=== PATIENT | female | born 1960 | race Caucasian/White ===

== ENCOUNTER 2016-09-12 18:47 | Emergency (ER) | payer BC, OTHER ==
--- NOTE | 2016-09-12 22:15 | ED PDOC ---
Arrival/HPI - General Time Seen by Provider: 09/12/16 20:47 Historian: Patient - History of Present Illness Narrative History of Present Illness (Text): 09/12/16 22:12 Patient past medical history of only high cholesterol, complains of 4 day history of constipation with no and abdominal pain. Patient states that she suffers from chronic constipation, states that she took magnesium citrate earlier today and tried to have a bowel movement with no success, states that she feels that stool stuck. Otherwise: (-) urinary symptoms, (-) diarrhea, (-) fever, (-) melena, (+) hematochezia. Has no history of prior abdominal surgery. PMD [place] Past Medical History - Provider Review Nursing Documentation Reviewed: Yes - Infectious Disease Hx of Infectious Diseases: None - Tetanus Immunization Tetanus Immunization: Unknown - Past Medical History Past Medical History: No Previous - Cardiac Hx Cardiac Disorders: No Hx Angina: No Hx Cardiac Arrhythmia: No Hx Circulatory Problems: No Hx Congestive Heart Failure: No Hx Heart Murmur: No Hx Heart Transplant: No Hx Hypertension: No Hx Internal Defibrillator: No Hx Mitral Valve Prolapse: No Hx Pacemaker: No Hx Peripheral Edema: No Hx Peripheral Vascular Disease: No - Pulmonary Hx Respiratory Disorders: Yes Hx Asthma: Yes Hx Bronchitis: Yes Hx Chronic Obstructive Pulmonary Disease (COPD): No Hx Emphysema: No Hx Pneumonia: No Hx Respiratory Aspiration: No Hx Respiratory Tract Infection: No Hx Sleep Apnea: No Hx Tuberculosis: No - Neurological Hx Neurological Disorder: Yes (headaches) Hx Alzheimer's Disease: No HX Cerebrovascular Accident: No Hx Dementia: No Hx Dizziness: Yes Hx Meningitis: No Hx Migraine: No Hx Parkinson's Disease: No Hx Seizures: No Hx Transient Ischemic Attacks (TIA): No - HEENT Hx HEENT Disorder: Yes (reading glasses) Hx Blind: No Hx Cataracts: No Hx Deafness: No Hx Difficulty Chewing: No Hx Epistaxis: No Hx Glaucoma: No Hx Macular Degeneration: No - Renal Hx Renal Disorder: No Hx Dialysis: No Hx Kidney Stones: No Hx Neurogenic Bladder: No Hx Pyelonephritis: No Hx Renal Cancer: No Hx Renal Failure: No - Endocrine/Metabolic Hx Endocrine Disorders: No Hx Adrenal Cancer: No Hx Diabetes Insipidus: No Hx Diabetes Mellitus Type 1: No Hx Diabetes Mellitus Type 2: No Hx Hyperthyroidism: No Hx Hypothyroidism: No Hx Systemic Lupus Erythematosus: No - Hematological/Oncological Hx Blood Disorders: No Hx AIDS: No Hx Anemia: No Hx Cancer: No Hx Chemotherapy: No Hx Cirrhosis: No Hx Hemophilia: No Hx Hepatitis A: No Hx Hepatitis B: No Hx Hepatitis C: No Hx Metastasis: No Hx Shingles: No Hx Sickle Cell Disease: No Hx Unexplained Bleeding: No - Integumentary Hx Dermatological Disorder: No Hx Basal Cell Carcinoma: No Hx Eczema: No Hx Melanoma: No Hx Psoriasis: No Hx Squamous Cell Carcinoma: No - Musculoskeletal/Rheumatological Hx Musculoskeletal Disorders: Yes Hx Arthritis: No Hx Back Pain: Yes Hx Degenerative Joint Disease: No Hx Falls: Yes (fell off a chair) Hx Fractures: No Hx Gout: No Hx Herniated Disk: No Hx Myasthenia Gravis: No Hx Osteoarthritis: No Hx Osteomyelitis: No Hx Osteoporosis: No Hx Rhabdomyolysis: No Hx Spinal Stenosis: No Hx Unsteady Gait: No - Gastrointestinal Hx Gastrointestinal Disorders: No Hx Colostomy: No Hx Crohn's Disease: No Hx Diverticulitis: No Hx Gall Bladder Disease: No Hx Gastroesophageal Reflux: No Hx Gastrointestinal Ulcer: No Hx Ileostomy: No Hx Liver Failure: No Hx Pancreatitis: No HX Swallowing Problems: No - Genitourinary/Gynecological Hx Genitourinary Disorders: No Hx Hematuria: No Hx Incontinence: No Hx Prostate Problems: No Hx Sexually Transmitted Diseases: No Hx Urinary Tract Infection: No - Psychiatric Hx Psychophysiologic Disorder: No Hx Anxiety: No Hx Bipolar Disorder: No Hx Depression: No Hx Emotional Abuse: No Hx Hallucinations: No Hx Panic Disorder: No Hx Post Traumatic Stress Disorder: No Hx Psychosis: No Hx Physical Abuse: No Hx Schizophrenia: No Hx Sexual Abuse: No Hx Substance Use: No - Past Surgical History Past Surgical History: No Previous - Surgical History Hx Amputation: No Hx Appendectomy: No Hx Cardiac Catheterization: No Hx Cholecystectomy: No Hx Coronary Stent: No Hx Gastric Bypass Surgery: No Hx Hysterectomy: No Hx Joint Replacement: No Hx Kidney Transplant: No Hx Liver Transplant: No Hx Mastectomy: No Hx Musculoskeletal Surgery: No Hx Open Heart Surgery: No Hx Orthopedic Surgery: No Hx Splenectomy: No Hx Valve Replacement: No - Anesthesia Hx Anesthesia: No Family/Social History - Physician Review Nursing Documentation Reviewed: Yes Family/Social History: No Known Family HX Smoking Status: Never Smoked Hx Alcohol Use: No Hx Substance Use: No Allergies/Home Meds Allergies/Adverse Reactions: Allergies Penicillins Allergy (Mild, Verified 07/02/15 15:01) RASH Home Medications: Home Meds Medication Instructions Recorded Confirmed Albuterol HFA [Ventolin HFA 90 1 puff INH PRN PRN 08/16/15 08/16/15 mcg/actuation (8 g)] Atorvastatin [Lipitor] 20 mg PO DAILY 08/16/15 08/16/15 Review of Systems - Review of Systems Constitutional: Normal. absent: Fatigue, Weight Change, Fevers (chronic constipation) Respiratory: Normal. absent: SOB, Cough, Sputum Cardiovascular: Normal. absent: Chest Pain, Palpitations, Edema Gastrointestinal: Normal, Constipation. absent: Abdominal Pain, Vomiting, Appetite Changes Skin: Normal. absent: Rash, Pruritis, Skin Lesions Physical Exam - Physical Exam Narrative Physical Exam (Text): 09/12/16 22:14 GENERAL APPEARANCE: Patient is awake, alert, oriented x 3, in no acute distress. SKIN: Warm, dry; (-) cyanosis. EYES: (-) conjunctival pallor, (-) scleral icterus. ENMT: Pharynx: (-) exudate, (-) erythema. Airway patent. Mucous membranes moist. NECK: (-) tenderness, (-) stiffness, (-) lymphadenopathy. CHEST AND RESPIRATORY: (-) rales, (-) rhonchi, (-) wheezes; breath sounds equal bilaterally. HEART AND CARDIOVASCULAR: (-) irregularity; (-) murmur, (-) gallop. ABDOMEN AND GI: (-) distention. Bowel sounds active; (-) tenderness, (-) guarding, (-) rebound, (-) palpable masses, (-) CVA tenderness. RECTAL : (-) tenderness, (-) mass, (-) stool impaction. Stool brown in scant amount of bright red blood, guiac (+). Female EMT field checker, Kerry, was present during the entire exam. EXTREMITIES: (-) deformity, (-) edema, (+) distal pulses. NEURO AND PSYCH: Mental status as above; (-) focal findings. Medical Decision Making ED Course and Treatment: 09/12/16 22:15 55 yo F presents with constipation, noted to have (+) guaic on rectal exam with no stool impaction. Labs ordered. Otherwise, patient is hemodynamically stable. Labs reviewed and are within normal limits. Patient's hemoglobin is 12. On reevaluation, patient remains awake, alert, oriented 3 in no acute distress. On exam, patient is laying in bed comfortably, abdomen remains soft with no tenderness. Lab results discussed with the patient in great detail. Based on history, exam and diagnostic results plan will be for outpatient follow -up with PMD. Patient states she fully agrees with and understands discharge instructions. States that she agrees with the plan and disposition. Verbalized and repeated discharge instructions and plan. I have given the patient opportunity to ask any additional questions. Follow up with primary care physician in 1-2 days without fail. Advised to take medication as prescribed. Return to the emergency room at any time for any new or worsening symptoms. - Lab Interpretations Lab Results: 09/13/16 00:35 09/13/16 00:35 Lab Results 09/13/16 00:35: WBC 9.8 D, RBC 4.21, Hgb 12.9, Hct 38.6, MCV 91.7, MCH 30.6, MCHC 33.4, RDW 14.5, Plt Count 199, MPV 10.7, Gran % 65.1, Lymph % (Auto) 28.4, [place] % (Auto) 6.3 H, Eos % (Auto) 0.1 L, Baso % (Auto) 0.1, Gran # 6.38, Lymph # 2.8, [place] # 0.6, Eos # 0.0, Baso # 0.01, PT 10.1, INR 0.94, APTT 20.7 L, Sodium 142, Potassium 4.4, Chloride 103, Carbon Dioxide 31, Anion Gap 12, BUN 13 , Creatinine 0.6, Est GFR ( Amer) > 60, Est GFR (Non-Af Amer) > 60, Random Glucose 111 H, Calcium 9.5, Total Bilirubin 0.4, AST 44 H, ALT 42, Alkaline Phosphatase 82, Total Protein 8.2, Albumin 4.4, Globulin 3.8, Albumin/ Globulin Ratio 1.1 I have reviewed the lab results: Yes Interpretation: All labs normal - PA / NUCLEAR CHEMISTRY TECHNICIAN / Resident Statement /DO has reviewed & agrees with the documentation as recorded. Disposition/Present on Arrival - Present on Arrival Any Indicators Present on Arrival: No History of DVT/PE: No History of Uncontrolled Diabetes: No Urinary Catheter: No History Surgical Site Infection Following: None - Disposition Have Diagnosis and Disposition been Completed?: Yes Diagnosis: Constipation, Rectal bleeding Disposition: HOME/ ROUTINE Disposition Time: : Patient Plan: Discharge Condition: GOOD Discharge Instructions (ExitCare): Constipation (ED), Rectal Bleeding (ED) Print Language: MALAYSIAN Additional Instructions: Thank you for letting us take care of you today. You were treated for constipation, rectal bleeding. The emergency medical care you received today was directed at your acute symptoms. If you were prescribed any medication, please fill it and take as directed. It may take several days for your symptoms to resolve. Return to the Emergency Department if your symptoms worsen, do not improve, or if you have any other problems. Please contact your doctor in 2 days for re-evaluation and follow up. Bring any paperwork you were given at discharge with you along with any medications you are taking to your follow up visit. Our treatment cannot replace ongoing medical care by a primary care provider (PCP) outside of the emergency department. Thank you for allowing the [facility] team to be part of your care today. Prescriptions: Polyethylene Glycol 3350 [Miralax] 17 pow PO DAILY #20 each Referrals: Melissa New MD [Primary Care Provider] - Follow up with primary Forms: WORK NOTE
[2016-09-12 22:30] VITALS: BMI 31.3
[2016-09-13 00:48] LABS: ADD MANUAL DIFF? NO
[2016-09-13 00:55] LABS: BASO # 0.01 K/mm3 (0.0-2.0); BASO % 0.1 % (0.0-3.0); EOS % 0.1 % (1.5-5.0); GRAN # 6.38 (1.4-6.5); GRAN % 65.1 % (50.0-68.0); HEMATOCRIT 38.6 % (36.0-48.0); LYMPH # 2.8 (1.2-3.4); LYMPH % 28.4 % (22.0-35.0); MEAN CELL VOLUME 91.7 fL (80.0-105.0); MEAN CORPUSCULAR HEMOGLOBIN 30.6 pg (25.0-35.0); MEAN CORPUSCULAR HGB CONC 33.4 g/dl (31.0-37.0); MEAN PLATELET VOLUME 10.7 fl (7.0-11.0); MONO # 0.6 (0.1-0.6); MONO % 6.3 % (1.0-6.0); PLATELET COUNT 199 10^3/uL (120.0-450.0); RED CELL DISTRIBUTION WIDTH 14.5 % (11.5-14.5); WHITE BLOOD COUNT 9.8 10^3/ul (4.5-11.0)
[2016-09-13 01:04] LABS: ALB/GLOB RATIO 1.1 (1.1-1.8); ALKALINE PHOSPHATASE 82 U/L (38-133); ALT/SGPT 42 U/L (7-56); AST/SGOT 44 U/L (15-39); BILIRUBIN,TOTAL 0.4 mg/dL (0.2-1.3); BLOOD UREA NITROGEN 13 mg/dL (7-21); CALCIUM 9.5 mg/dL (8.4-10.5); CARBON DIOXIDE 31 mmol/L (21-33); CHLORIDE 103 mmol/L (95-110); GFR AFRICAN-AMERICAN > 60; GLUCOSE,RANDOM 111 mg/dL (70-110); POTASSIUM 4.4 mmol/L (3.6-5.0); SODIUM 142 mmol/L (132-148); TOTAL PROTEIN 8.2 g/dL (5.8-8.3)
[2016-09-13 01:09] LABS: INR 0.94 (0.93-1.08); PARTIAL THROMBOPLASTIN TIME 20.7 Seconds (23.7-30.8)
[2016-09-13 01:48] VITALS: BP 112/76; PULSE 82; RESP 18; TEMP 98.4; O2SAT 100
== END 2016-09-13 02:10 | disposition home or self-care (01) ==
LOC: ED 18:47
DX: K59.00 Constipation, unspecified (principal); K62.5 Hemorrhage of anus and rectum; E78.00 Pure hypercholesterolemia, unspecified; Z88.0 Allergy status to penicillin